=== PATIENT | female | born 1945 | race Caucasian/White ===

== ENCOUNTER 2017-09-10 14:15 | Outpatient (RCR) | payer MEDICARE, OTHER ==
[~2017-09-10 14:15] MED LIST: CIPRO 500MG TA500 MG PO; DEMEROL 50M50 MG/TAB PO; DESYREL 50MG50 MG PO; DOXYCYCLINE 10100 MG PO; FLAGYL500 MG PO; NORCO 325 MG-51 TAB PO; PRAVACHOL 40MG40 MG PO; TYLENOL 500MG500 MG PO; ZOCOR 40MG40 MG PO; ZOFRAN ODT4 MG PO
== END 2017-10-14 ==
LOC: WSPT
DX: M25.551 Pain in right hip (principal); M62.81 Muscle weakness (generalized); G89.29 Other chronic pain
CPT/HCPCS: G0283-GP; G8978-GP; G8979-GP

== ENCOUNTER → 2017-09-22 | Outpatient (CLI) | payer MEDICARE | LOC: COL.RAD 09:21 | DX: K76.0 Fatty (change of) liver, not elsewhere classified (principal); K83.8 Other specified diseases of biliary tract; Z90.49 Acquired absence of other specified parts of digestive tract ==

== ENCOUNTER → 2017-09-23 | Outpatient (CLI) | payer MEDICARE | LOC: MC.RAD 13:09 | DX: Z12.31 Encounter for screening mammogram for malignant neoplasm of breast (principal) ==

== ENCOUNTER → 2018-10-27 | Outpatient (CLI) | payer MEDICARE, OTHER | LOC: MC.RAD 14:16 | DX: Z12.31 Encounter for screening mammogram for malignant neoplasm of breast (principal) ==

== ENCOUNTER 2019-07-17 12:15 | Emergency (ER) | payer MEDICARE, BC ==
[~2019-07-17] VITALS: Ht 162.6 cm; Wt 86.4 kg
[2019-07-17 14:48] LABS: BASO # 0.1 (0.0-0.2); BASO % 0.6 % (0.0-2.0); EOS # 0.2 (0.0-0.7); EOS % 2.2 % (0-4.0); GRAN # 5.6 (1.4-6.5); HEMATOCRIT 48.4 % (37.0-47.0); HEMOGLOBIN 16.2 g/dl (12.5-16.0); LYMPH # 2.3 (1.2-3.4); LYMPH % 26.1 % (20.0-51.0); MEAN CELL VOLUME 89 fl (80.0-100.0); MEAN CORPUSCULAR HEMOGLOBIN 30 pg (27.0-31.0); MEAN CORPUSCULAR HGB CONC 34 g/dl (33.0-37.0); MEAN PLATELET VOLUME 9.8 fl (7.4-10.4); MONO # 0.7 (0.1-0.6); MONO % 7.9 % (1.7-9.3); PLATELET COUNT 183 K/mm3 (130-400); RED BLOOD COUNT 5.43 M/mm3 (4.10-5.30); REDCELL DISTRIBUTION WIDTH-CV 13.8 % (11.5-14.5)
[2019-07-17 15:03] LABS: ALBUMIN 4.2 gm/dL (3.5-5.0); BILIRUBIN,TOTAL 0.7 mg/dL (0.0-1.0); C-REACTIVE PROTEIN 0.7 mg/dL (0.0-0.9); CALCIUM 9.9 mg/dL (8.4-10.2); CREATININE, serum 0.95 (0.52-1.25); POTASSIUM 4.4 mmol/L (3.4-5.0); TOTAL PROTEIN 7.1 gm/dL (6.4-8.2)
[2019-07-17 16:01] LABS: COLLECTION METHOD CLEAN CATCH
[2019-07-17 16:18] LABS: PH 5 (5-8); SQUAMOUS EPITHELIAL 0-2 /hpf; URINE APPEARANCE Clear; URINE BACTERIA None Seen /hpf; URINE BILIRUBIN Negative (NEGATIVE); URINE BLOOD Negative (NEGATIVE); URINE COLOR Straw; URINE GLUCOSE Negative (NEGATIVE); URINE KETONE Negative (NEGATIVE); URINE LEUKOCYTE ESTERASE Negative (NEGATIVE); URINE NITRATE Negative (NEGATIVE); URINE PROTEIN(semi-quant) Negative (NEGATIVE); URINE RBC 0-2 /hpf; URINE UROBILINOGEN Negative (NEGATIVE)
[2019-07-17 16:51] VITALS: BP 130/91; PULSE 73; TEMP 98.2
== END 2019-07-17 16:45 | disposition home or self-care (01) ==
LOC: COL.ER 12:15
PROVIDERS: Physician Assistant
DX: R10.32 Left lower quadrant pain (principal); Z87.442 Personal history of urinary calculi; Z87.19 Personal history of other diseases of the digestive system
CPT/HCPCS: J1170; J2405; J7030; Q9967

== ENCOUNTER 2020-07-23 12:16 | Emergency (ER) | payer MEDICARE, BC ==
[~2020-07-23] VITALS: Ht 162.6 cm; Wt 88.6 kg
[2020-07-23 12:33] VITALS: BP 147/115; TEMP 98.5
[2020-07-23] MEDS ORDERED: MOBIC 7.5MG7.5 MG PO (14:22)
[2020-07-23 14:57] VITALS: PULSE 66
== END 2020-07-23 14:55 | disposition home or self-care (01) ==
LOC: COL.ER 12:16
DX: M25.551 Pain in right hip (principal); Z90.49 Acquired absence of other specified parts of digestive tract; Z88.0 Allergy status to penicillin; Z88.2 Allergy status to sulfonamides; Z88.8 Allergy status to other drugs, medicaments and biological substances
CPT/HCPCS: J1885

== ENCOUNTER 2020-09-24 14:30 | Outpatient (RCR) | payer MEDICARE ==
[~2020-09-24 14:30] MED LIST changes: +MOBIC 7.5MG7.5 MG PO
== END 2020-11-05 | disposition home or self-care (01) ==
LOC: WSPT
DX: S76.011A Strain of muscle, fascia and tendon of right hip, initial encounter (principal)

== ENCOUNTER 2023-01-29 15:00 | Outpatient (RCR) | payer MEDICARE, OTHER | END 2023-01-30 | disposition home or self-care (01) | LOC: WSPT | DX: M24.551 Contracture, right hip (principal) ==

== ENCOUNTER → 2023-02-17 | Outpatient (CLI) | payer MEDICARE | LOC: COL.RAD 13:19 | DX: M47.816 Spondylosis without myelopathy or radiculopathy, lumbar region (principal) ==